=== PATIENT | male | born 1965 | race African-American/Black ===

== ENCOUNTER 2021-12-03 13:15 | Inpatient (IN) | payer BC ==
[2021-12-03] MEDS ORDERED: MAG HYDROX/AL HYDROX/SIMETH 30 ML UNIT-DOSE CUP PO PRN (13:55)
[2021-12-03] MEDS ORDERED: ACETAMINOPHEN 325 MG TABLET (FP) PO PRN (13:55)
[2021-12-03] MEDS ORDERED: LOPERAMIDE HCL 2 MG CAPSULE PO PRN (13:55)
[2021-12-03] MEDS ORDERED: MAGNESIUM CITRATE 300 ML BOTTLE PO PRN (13:55)
[2021-12-03] MEDS ORDERED: cloNIDine HCL 0.1 MG TABLET PO ONE (13:55)
[2021-12-03] MEDS ORDERED: diazePAM 5 MG TABLET PO PRN (13:55)
[2021-12-03] MEDS ORDERED: ONDANSETRON *ODT* 4 MG TABLET SL PRN (13:55)
[2021-12-03] MEDS ORDERED: NICOTINE 10 MG CARTRIDGE (INHALER) IH PRN (13:55)
[2021-12-03] MEDS ORDERED: BUPRENORPHINE HCL 150 MCG, BUPRENORPHINE HCL 75 MCG BC ONE (13:55)
[2021-12-03] MEDS ORDERED: MENTHOL/PHENOL 1 EACH UD MM PRN (13:55)
[2021-12-03] MEDS ORDERED: BISMUTH SUBSALICYLATE 524 MG/30 ML PO PRN (13:55)
[2021-12-03] MEDS ORDERED: MAGNESIUM HYDROX 2400MG/30ML ORAL SUSPENSION 30 ML CUP PO PRN (13:55)
[2021-12-03 14:06] VITALS: BMI 24.2
[2021-12-03] MEDS ORDERED: BUPRENORPHINE HCL 150 MCG FILM BC ONE (15:30)
[2021-12-03] MEDS ORDERED: BUPRENORPHINE HCL 75 MCG FILM BC ONE (15:30)
[2021-12-03] MEDS: hydrOXYzine PAMOATE 25 MG CAPSULE (FP) PO SCH ×3 (17:05→23:23)
[2021-12-03] MEDS: NICOTINE 14 MG/24 HOURS TOPICAL PATCH TD SCH (17:05)
[2021-12-03 17:58] LABS: HEMATOCRIT 39.5 % (35.4-49); HEMOGLOBIN 13.2 GM/dL (11.7-16.9); MCHC 33.4 g/dl (32.0-35.9); MEAN PLT VOLUME 8.5 fl (7.5-11.1); PLATELET COUNT 249 10^3/uL (134-434); RBC 4.12 M/mm3 (4.00-5.60); RDW 13.2 % (11.9-15.9); WHITE BLOOD COUNT 6.3 K/mm3 (4.0-10.0)
[2021-12-03 18:02] LABS: ALBUMIN 3.1 g/dl (3.4-5.0); BLOOD UREA NITROGEN 17.2 mg/dL (7-18); CALCIUM 8.2 mg/dL (8.5-10.1)
[2021-12-03 18:05] LABS: CREATININE 1.3 mg/dL (0.55-1.3)
[2021-12-03 18:06] LABS: BILIRUBIN,TOTAL 0.4 mg/dL (0.2-1)
[2021-12-03] MEDS: PRENATAL VITAMINS W/ FOLIC ACID TABLET (FP) PO SCH (18:12)
[2021-12-03 18:17] LABS: TOT PROT 6.2 g/dl (6.4-8.2)
[2021-12-03] MEDS: MELATONIN 5 MG TABLETS PO SCH (23:23)
[2021-12-03] MEDS: THIAMINE HCL 100 MG TABLET (FP) PO SCH (23:23)
[2021-12-04] MEDS ORDERED: BUPRENORPHINE HCL 150 MCG FILM BC ONE ×2 (04:11→17:37)
[2021-12-04] MEDS ORDERED: BUPRENORPHINE HCL 75 MCG FILM BC ONE ×2 (04:12→17:38)
[2021-12-04] MEDS: hydrOXYzine PAMOATE 25 MG CAPSULE (FP) PO SCH ×5 (05:44→23:05)
[2021-12-04] MEDS ORDERED: BUPRENORPHINE HCL 150 MCG, BUPRENORPHINE HCL 75 MCG BC SCH (06:00)
[2021-12-04] MEDS: IBUPROFEN 400 MG TABLET (FP) PO PRN (10:50)
[2021-12-04] MEDS: METHOCARBAMOL 500 MG TABLET PO PRN (10:50)
[2021-12-04] MEDS: PRENATAL VITAMINS W/ FOLIC ACID TABLET (FP) PO SCH (10:52)
[2021-12-04] MEDS: DICYCLOMINE HCL 10 MG CAPSULE PO PRN (10:53)
[2021-12-04] MEDS: NICOTINE 14 MG/24 HOURS TOPICAL PATCH TD SCH (10:54)
[2021-12-04] MEDS ORDERED: BUPRENORPHINE HCL 150 MCG, BUPRENORPHINE HCL 75 MCG BC ONE ×2 (12:50→18:00)
[2021-12-04] MEDS ORDERED: cloNIDine HCL 0.1 MG TABLET PO ONE (14:00)
[2021-12-04] MEDS ORDERED: cloNIDine HCL 0.1 MG TABLET PO PRN (16:50)
[2021-12-04] MEDS: THIAMINE HCL 100 MG TABLET (FP) PO SCH (23:04)
[2021-12-04] MEDS: diazePAM 5 MG TABLET PO PRN (23:05)
[2021-12-04] MEDS: cloNIDine HCL 0.1 MG TABLET PO PRN (23:06)
[2021-12-04] MEDS: MELATONIN 5 MG TABLETS PO SCH (23:08)
[2021-12-05] MEDS ORDERED: BUPRENORPHINE HCL 150 MCG FILM BC ONE ×2 (05:41→17:15)
[2021-12-05] MEDS ORDERED: BUPRENORPHINE HCL 75 MCG FILM BC ONE ×2 (05:41→17:15)
[2021-12-05] MEDS: hydrOXYzine PAMOATE 25 MG CAPSULE (FP) PO SCH ×5 (05:49→22:28)
[2021-12-05] MEDS: BUPRENORPHINE HCL 150 MCG, BUPRENORPHINE HCL 75 MCG BC SCH ×2 (05:50→17:33)
[2021-12-05] MEDS ORDERED: BUPRENORPHINE HCL 450 MCG FILM BC SCH (06:00)
[2021-12-05] MEDS: DICYCLOMINE HCL 10 MG CAPSULE PO PRN (07:43)
[2021-12-05] MEDS: ACETAMINOPHEN 325 MG TABLET (FP) PO PRN (07:46)
[2021-12-05 08:06] LABS: SARS-CoV-2 NAA Not Detected (Not Detected)
[2021-12-05] MEDS: NICOTINE 14 MG/24 HOURS TOPICAL PATCH TD SCH (10:59)
[2021-12-05] MEDS: diazePAM 5 MG TABLET PO PRN (10:59)
[2021-12-05] MEDS: PRENATAL VITAMINS W/ FOLIC ACID TABLET (FP) PO SCH (10:59)
[2021-12-05] MEDS: amLODIPine BESYLATE 5 MG TABLET (FP) PO SCH (17:32)
[2021-12-05] MEDS: THIAMINE HCL 100 MG TABLET (FP) PO SCH (22:28)
[2021-12-05] MEDS: MELATONIN 5 MG TABLETS PO SCH (22:29)
[2021-12-06] MEDS: ACETAMINOPHEN 325 MG TABLET (FP) PO PRN (03:33)
[2021-12-06] MEDS: METHOCARBAMOL 500 MG TABLET PO PRN ×3 (03:34→19:13)
[2021-12-06] MEDS: BUPRENORPHINE HCL 450 MCG FILM BC SCH ×2 (05:30→19:11)
[2021-12-06] MEDS: hydrOXYzine PAMOATE 25 MG CAPSULE (FP) PO SCH ×5 (05:31→23:37)
[2021-12-06] MEDS: IBUPROFEN 400 MG TABLET (FP) PO PRN (05:33)
[2021-12-06] MEDS ORDERED: BUPRENORPHINE/NALOXONE 4 MG/1 MG FILM PACKET SL SCH (06:00)
[2021-12-06] MEDS: NICOTINE 14 MG/24 HOURS TOPICAL PATCH TD SCH (11:12)
[2021-12-06] MEDS: amLODIPine BESYLATE 5 MG TABLET (FP) PO SCH (11:12)
[2021-12-06] MEDS: PRENATAL VITAMINS W/ FOLIC ACID TABLET (FP) PO SCH (11:13)
[2021-12-06] MEDS: BACITRACIN 0.9 GM PACKET TP SCH (23:37)
[2021-12-06] MEDS: THIAMINE HCL 100 MG TABLET (FP) PO SCH (23:37)
[2021-12-06] MEDS: cloNIDine HCL 0.1 MG TABLET PO PRN (23:37)
[2021-12-06] MEDS: MELATONIN 5 MG TABLETS PO SCH (23:37)
[2021-12-07] MEDS ORDERED: BUPRENORPHINE/NALOXONE 8 MG/2 MG FILM PACKET SL ONE (06:00)
[2021-12-07] MEDS: hydrOXYzine PAMOATE 25 MG CAPSULE (FP) PO SCH ×5 (06:12→23:28)
[2021-12-07] MEDS: BUPRENORPHINE/NALOXONE 4 MG/1 MG FILM PACKET SL SCH ×2 (06:15→17:42)
[2021-12-07] MEDS: BACITRACIN 0.9 GM PACKET TP SCH ×2 (11:28→23:28)
[2021-12-07] MEDS: NICOTINE 14 MG/24 HOURS TOPICAL PATCH TD SCH (11:28)
[2021-12-07] MEDS: PRENATAL VITAMINS W/ FOLIC ACID TABLET (FP) PO SCH (11:28)
[2021-12-07] MEDS: amLODIPine BESYLATE 5 MG TABLET (FP) PO SCH (11:28)
[2021-12-07] MEDS: THIAMINE HCL 100 MG TABLET (FP) PO SCH (23:28)
[2021-12-07] MEDS: MELATONIN 5 MG TABLETS PO SCH (23:28)
[2021-12-08] MEDS ORDERED: BUPRENORPHINE/NALOXONE 8 MG/2 MG FILM PACKET SL ONE (06:00)
[2021-12-08] MEDS: hydrOXYzine PAMOATE 25 MG CAPSULE (FP) PO SCH ×2 (06:17→10:02)
[2021-12-08] MEDS: PRENATAL VITAMINS W/ FOLIC ACID TABLET (FP) PO SCH (10:01)
[2021-12-08] MEDS: amLODIPine BESYLATE 5 MG TABLET (FP) PO SCH (10:01)
[2021-12-08] MEDS: BACITRACIN 0.9 GM PACKET TP SCH (10:01)
[2021-12-08] MEDS: NICOTINE 14 MG/24 HOURS TOPICAL PATCH TD SCH (10:02)
[2021-12-08 10:06] VITALS: BP 128/59; PULSE 103; TEMP 96.9
== END 2021-12-08 10:32 | disposition home or self-care (01) | DRG 773 ==
LOC: YASAS 13:15 → Y6N 15:49
PROVIDERS: ADMIT Allergy & Immunology; ATTEND Allergy & Immunology
PROC: HZ2ZZZZ Detoxification Services for Substance Abuse Treatment (ICD-10-PCS; principal; 2021-12-03)
DX: F11.23 Opioid dependence with withdrawal (principal); F14.20 Cocaine dependence, uncomplicated; F17.210 Nicotine dependence, cigarettes, uncomplicated; R03.0 Elevated blood-pressure reading, without diagnosis of hypertension; Z87.09 Personal history of other diseases of the respiratory system; Z59.01 Sheltered homelessness; Z56.0 Unemployment, unspecified
CPT/HCPCS: 36415; 80053; 85027; 86780; 93005; 93010; C9803-CS; J0735; U0003; U0005